=== PATIENT | female | born 1960 | race African-American/Black ===

== ENCOUNTER 2017-10-12 03:56 | Emergency (ER) | payer OTHER ==
[~2017-10-12] VITALS: Ht 165.1 cm; Wt 72.7 kg
[2017-10-12] MEDS ORDERED: TRAZ150 PO (04:11)
[2017-10-12] MEDS ORDERED: CARI6CAP PO (04:11)
[2017-10-12] MEDS ORDERED: OLAN7.5T2 PO (04:11)
[2017-10-12] MEDS ORDERED: MULT-248 PO (04:11)
[2017-10-12] MEDS ORDERED: AMOX125T PO (04:11)
[2017-10-12] MEDS ORDERED: KETOROLAC TROMETHAMINE 30 MG/ML VIAL IM ONE (04:15)
[2017-10-12 05:15] VITALS: BP 148/99
== END 2017-10-12 05:43 | disposition home or self-care (01) ==
LOC: EMS 03:57
DX: S20.212A Contusion of left front wall of thorax, initial encounter (principal); M54.5 Low back pain; I10 Essential (primary) hypertension; F17.210 Nicotine dependence, cigarettes, uncomplicated; W21.03XA Struck by baseball, initial encounter; Y93.64 Activity, baseball; Y92.89 Other specified places as the place of occurrence of the external cause; Y99.8 Other external cause status
CPT/HCPCS: 71046; 96372; 99284; J1885

== ENCOUNTER 2018-01-26 09:20 | Emergency (ER) | payer OTHER ==
[~2018-01-26] VITALS: Ht 154.9 cm; Wt 69.1 kg
[~2018-01-26 09:20] MED LIST: AMOX125T PO; CARI6CAP PO; MULT-248 PO; OLAN7.5T2 PO; TRAZ150 PO
[2018-01-26] MEDS ORDERED: NAPROXEN 250 MG TABLET PO ONE (10:15)
[2018-01-26 10:28] VITALS: BP 159/91
== END 2018-01-26 10:35 | disposition home or self-care (01) ==
LOC: EMS 09:24
DX: Z48.02 Encounter for removal of sutures (principal); M79.89 Other specified soft tissue disorders; I10 Essential (primary) hypertension; F17.210 Nicotine dependence, cigarettes, uncomplicated
CPT/HCPCS: 99283

== ENCOUNTER 2021-05-05 05:42 | Emergency (ER) | payer MEDICARE, MEDICAID ==
[~2021-05-05] VITALS: Ht 154.9 cm; Wt 66.8 kg
[~2021-05-05 05:42] MED LIST changes: -AMOX125T PO; -OLAN7.5T2 PO; +OLAN7.5T22 PO; -TRAZ150 PO; +TRAZ150T80 PO
[2021-05-05] MEDS ORDERED: LIDOCAINE/PF 1% 2 ML VIAL IM ONE (06:15)
[2021-05-05] MEDS ORDERED: FLUCONAZOLE 150 MG TABLET PO ONE (06:15)
[2021-05-05] MEDS ORDERED: DOXYCYCLINE HYCLATE 100 MG TABLET PO ONE (06:15)
[2021-05-05] MEDS ORDERED: IBUPROFEN 600 MG TABLET PO ONE (06:15)
[2021-05-05] MEDS ORDERED: PENICILLIN G BENZATHINE LA 2,400,000 UNITS/4 ML SYRINGE IM ONE (06:15)
[2021-05-05] MEDS ORDERED: CefTRIAXone SODIUM 1 GM/VIAL IM ONE (06:15)
[2021-05-05 08:00] VITALS: BP 120/81
[2021-05-05 08:29] LABS: APPEARANCE,URINE CLEAR (CLEAR); BILIRUBIN,URINE NEGATIVE (NEGATIVE); GLUCOSE, URINE (UA) NEGATIVE (NEGATIVE); KETONES,URINE NEGATIVE (NEGATIVE); LEUKOCYTE ESTERASE ,URINE NEGATIVE (NEGATIVE); NITRATE,URINE NEGATIVE (NEGATIVE); OCCULT BLOOD,URINE NEGATIVE (NEGATIVE); PH,URINE 6.5 (5.0-8.0); PROTEIN,URINE NEGATIVE (NEGATIVE)
[2021-05-06 05:07] LABS: RPR QUANT. (TITER) 1:16 (NonRea<1:1)
== END 2021-05-05 08:47 | disposition home or self-care (01) ==
LOC: EMS 05:42
DX: B37.3 Candidiasis of vulva and vagina (principal); F17.210 Nicotine dependence, cigarettes, uncomplicated; I10 Essential (primary) hypertension; F14.90 Cocaine use, unspecified, uncomplicated; F31.9 Bipolar disorder, unspecified
CPT/HCPCS: 36415; 81003; 86592; 86593; 86780; 96372; 99284; J0561; J0696; J3490

== ENCOUNTER 2022-01-07 08:58 | Emergency (ER) | payer MEDICARE, MEDICAID ==
[~2022-01-07] VITALS: Ht 153 cm; Wt 62.3 kg
[2022-01-07] MEDS ORDERED: CefTRIAXone SODIUM 1 GM/VIAL IM ONE (09:30)
[2022-01-07] MEDS ORDERED: LIDOCAINE/PF 1% 2 ML VIAL IM ONE (09:30)
[2022-01-07] MEDS ORDERED: DOXY-354 PO (09:55)
[2022-01-07 10:19] LABS: APPEARANCE,URINE CLEAR (CLEAR); BILIRUBIN,URINE NEGATIVE (NEGATIVE); GLUCOSE, URINE (UA) NEGATIVE (NEGATIVE); KETONES,URINE NEGATIVE (NEGATIVE); LEUKOCYTE ESTERASE ,URINE MODERATE (NEGATIVE); NITRATE,URINE NEGATIVE (NEGATIVE); OCCULT BLOOD,URINE TRACE (NEGATIVE); PH,URINE 5.5 (5.0-8.0); PROTEIN,URINE TRACE mg/dL (NEGATIVE); SPECIFIC GRAVITIY, URINE 1.036 (1.003-1.030)
[2022-01-07 10:42] VITALS: BP 131/77
[2022-01-07 11:04] LABS: BACTERIA,URINE None Seen /HPF (None Seen); RBC,URINE None Seen /HPF (0-2); SQUAMOUS EPITHELIAL CELL,UR Few /LPF (None Seen)
== END 2022-01-07 11:28 | disposition home or self-care (01) ==
LOC: EMS 08:58
DX: A64 Unspecified sexually transmitted disease (principal); I10 Essential (primary) hypertension; F31.9 Bipolar disorder, unspecified; F14.90 Cocaine use, unspecified, uncomplicated; F17.210 Nicotine dependence, cigarettes, uncomplicated; Z79.899 Other long term (current) drug therapy
CPT/HCPCS: 81001; 87491; 87591; 96372; 99283; J0696; J3490

== ENCOUNTER 2022-10-28 07:39 | Emergency (ER) | payer MEDICARE, MEDICAID ==
[~2022-10-28] VITALS: Ht 154.9 cm; Wt 56.8 kg
[~2022-10-28 07:39] MED LIST changes: +DOXY-354 PO
[2022-10-28] MEDS ORDERED: SODIUM CHLORIDE 0.9% 1,000 ML IV ONE ×2 (08:00→09:45)
[2022-10-28] MEDS ORDERED: ONDANSETRON HCL 4 MG/2 ML VIAL IVP ONE (08:00)
[2022-10-28] MEDS ORDERED: KETOROLAC TROMETHAMINE 30 MG/ML VIAL IVP ONE (08:00)
[2022-10-28 08:32] LABS: BASOPHILS % (AUTO) 0.6 % (0.0-2.0); EOSINOPHILS % (AUTO) 0 % (1.0-6.0); HEMATOCRIT 41.8 % (36-46); HEMOGLOBIN 13.8 g/dL (12.0-16.0); LYMPHOCYTES # (AUTO) 1.6 K/uL (1.0-4.8); LYMPHOCYTES % (AUTO) 48.4 % (22.0-44.0); MEAN CORPUSCULAR HEMOGLOBIN 29.6 pg (26.0-34.0); MEAN CORPUSCULAR HGB CONC 32.9 G/dL (31.0-37.0); MEAN CORPUSCULAR VOLUME 90 fL (80-100); MONOCYTES # (AUTO) 0.4 K/uL (0.1-1.0); MONOCYTES % (AUTO) 11.3 % (2.0-9.0); NEUTROPHILS # (AUTO) 1.3 K/uL (1.8-7.7); NEUTROPHILS % (AUTO) 39.7 % (40.0-70.0); PLATELET COUNT (AUTO) 209 K/uL (150-450); RED BLOOD CELL COUNT(AUTO) 4.66 MIL/uL (4.00-5.20); RED CELL DISTRIBUTION WIDTH 13.2 % (11.5-14.5)
[2022-10-28 08:45] LABS: ALANINE AMINOTRANSFERASE 37 U/L (12-78); ALBUMIN 3.9 g/dL (3.4-5.0); ALKALINE PHOSPHATASE 94 U/L (46-116); ANION GAP 13 mmol/L (8-16); ASPARTATE AMINOTRANSFERASE 47 U/L (15-37); BILIRUBIN,TOTAL 0.3 mg/dL (0.1-1.0); CALCIUM, TOTAL 9.2 mg/dL (8.8-10.5); CARBON DIOXIDE 27 mmol/L (22-29); CHLORIDE 97 mmol/L (98-107); GLOMERULAR FILTR. RATE CALC > 60 mL/min (>60); GLUCOSE,RANDOM 110 mg/dL (70-110); LIPASE 54 U/L (73-393); SODIUM SERUM 137 mmol/L (136-145); TOTAL PROTEIN, SERUM 8.4 g/dL (6.4-8.2); UREA NITROGEN, BLOOD 40 mg/dL (7-18)
[2022-10-28 08:51] LABS: POTASSIUM 2.8 mmol/L (3.5-5.1)
[2022-10-28] MEDS ORDERED: POTASSIUM CHLORIDE 10% 40 MEQ/30 ML LIQUID UDCUP PO ONE ×2 (09:00→09:45)
[2022-10-28] MEDS ORDERED: ONDA-104 PO (10:18)
[2022-10-28] MEDS ORDERED: ACET-2080 PO (10:18)
[2022-10-28 10:20] VITALS: BP 124/78
== END 2022-10-28 11:06 | disposition home or self-care (01) ==
LOC: EMS 07:51
DX: R11.2 Nausea with vomiting, unspecified (principal); F31.9 Bipolar disorder, unspecified; I10 Essential (primary) hypertension; F17.210 Nicotine dependence, cigarettes, uncomplicated; F14.90 Cocaine use, unspecified, uncomplicated; Z98.890 Other specified postprocedural states; E87.6 Hypokalemia; S46.911A Strain of unspecified muscle, fascia and tendon at shoulder and upper arm level, right arm, initial encounter; X58.XXXA Exposure to other specified factors, initial encounter; Y93.89 Activity, other specified; Y92.89 Other specified places as the place of occurrence of the external cause; Y99.8 Other external cause status
CPT/HCPCS: 99285; 96374; 71045; 96361; 96375; 80053; 83690; 84484; 85025; 36415; 73030; 93005; 29240; J1885; J2405; J7030

== ENCOUNTER 2022-12-07 10:47 | Emergency (ER) | payer MEDICARE, MEDICAID ==
[~2022-12-07] VITALS: Ht 154.9 cm; Wt 46.3 kg
[~2022-12-07 10:47] MED LIST changes: +ACET-2080 PO; +ONDA-104 PO
[2022-12-07 12:05] LABS: BASOPHILS % (AUTO) 0.7 % (0.0-2.0); EOSINOPHILS % (AUTO) 0.5 % (1.0-6.0); LYMPHOCYTES # (AUTO) 0.7 K/uL (1.0-4.8); LYMPHOCYTES % (AUTO) 25.9 % (22.0-44.0); MEAN CORPUSCULAR HEMOGLOBIN 28.6 pg (26.0-34.0); MEAN CORPUSCULAR HGB CONC 32.4 G/dL (31.0-37.0); MEAN CORPUSCULAR VOLUME 88 fL (80-100); MONOCYTES # (AUTO) 0.2 K/uL (0.1-1.0); MONOCYTES % (AUTO) 7.5 % (2.0-9.0); NEUTROPHILS # (AUTO) 1.7 K/uL (1.8-7.7); NEUTROPHILS % (AUTO) 65.4 % (40.0-70.0); RED BLOOD CELL COUNT(AUTO) 4.18 MIL/uL (4.00-5.20); RED CELL DISTRIBUTION WIDTH 14.4 % (11.5-14.5)
[2022-12-07 12:08] LABS: ANION GAP 8 mmol/L (8-16); CARBON DIOXIDE 27 mmol/L (22-29); CHLORIDE 97 mmol/L (98-107); CREATININE 0.75 mg/dL (0.60-1.30); GLOMERULAR FILTR. RATE CALC > 60 mL/min (>60); GLUCOSE,RANDOM 116 mg/dL (70-110); SODIUM SERUM 132 mmol/L (136-145)
[2022-12-07 12:14] LABS: ALANINE AMINOTRANSFERASE 260 U/L (12-78); ALBUMIN 2.9 g/dL (3.4-5.0); ALKALINE PHOSPHATASE 220 U/L (46-116); ASPARTATE AMINOTRANSFERASE 274 U/L (15-37); BILIRUBIN,TOTAL 0.8 mg/dL (0.1-1.0); LIPASE 59 U/L (73-393); TOTAL PROTEIN, SERUM 7.3 g/dL (6.4-8.2)
[2022-12-07 12:29] LABS: PLATELET COUNT (AUTO) 73 K/uL (150-450)
[2022-12-07] MEDS ORDERED: SODIUM CHLORIDE 0.9% 1,000 ML IV ONE (12:30)
[2022-12-07 17:49] VITALS: BP 99/62
[2022-12-08 06:07] LABS: HEPATITIS C AB (EIA) Non Reactive (Non Reactive)
== END 2022-12-07 18:07 | disposition home or self-care (01) ==
LOC: EMS 10:49
DX: E86.0 Dehydration (principal); R53.1 Weakness; R79.89 Other specified abnormal findings of blood chemistry; F31.9 Bipolar disorder, unspecified; I10 Essential (primary) hypertension; F17.210 Nicotine dependence, cigarettes, uncomplicated; F14.90 Cocaine use, unspecified, uncomplicated; Z98.890 Other specified postprocedural states
CPT/HCPCS: 99285; 74176; 96360; 80053; 83690; 84484; 85025; 36415; 80074; 93005; G0480; J7030